=== PATIENT | male | born 1970 | race Two or more races ===

== ENCOUNTER 2017-09-28 10:09 | Emergency (ER) | payer MEDICAID, OTHER ==
[~2017-09-28] VITALS: Ht 165.1 cm; Wt 81.6 kg
[2017-09-28] MEDS ORDERED: IBUPROFEN 800 MG TAB PO ONE (13:30)
[2017-09-28 13:39] VITALS: BP 138/82
== END 2017-09-28 13:41 | disposition home or self-care (01) ==
LOC: ER 10:09
DX: S29.011A Strain of muscle and tendon of front wall of thorax, initial encounter (principal); S29.012A Strain of muscle and tendon of back wall of thorax, initial encounter; V43.62XA Car passenger injured in collision with other type car in traffic accident, initial encounter; Y93.89 Activity, other specified; Y92.488 Other paved roadways as the place of occurrence of the external cause; Y99.8 Other external cause status
CPT/HCPCS: 71046